=== PATIENT | male | born 1955 | race Caucasian/White ===

== ENCOUNTER 2023-04-25 11:03 | Day surgery (SDC) | payer MEDICARE, OTHER ==
[~2023-04-25] VITALS: Ht 167.6 cm; Wt 55.8 kg
[2023-04-25] VITALS (13 sets, daily range): BP systolic 103–154; BP diastolic 65–95
[~2023-04-25 11:03] MED LIST: METR59TL TOP
--- NOTE | 2023-04-25 12:13 | NUR ---
PRE-OP NOTE PT A&OX4, BREATHING RA, NO COMPLAINTS. Ambulatory in Day Surgery Patient confirms NPO status and agrees with scheduled surgery. Pre-Op teaching done. Pt verbalizes understanding. Patient States Post-Procedure ride home has been arranged.
--- NOTE | 2023-04-25 16:06 | NUR ---
DISCHARGE NOTE PT A&OX4, BREATHING RA, NO COMPLAINTS, TOLERATING PO FLUIDS AND FOOD. PT ABLE TO DRESS INDEPENDENTLY C RN AT BEDSIDE. ICE APPLIED TO SURGICAL SITE. Discharge instructions reviewed with patient. Patient verbalizes understanding. Copy given to patient to take home. Dressing to procedure site clean, dry, intact with no visible drainage, swelling, erythema or bruising noted. Discharged via wheelchair to private car for ride home.
== END 2023-04-25 16:18 | disposition home or self-care (01) ==
LOC: ORSCMMR 11:03 → ORD 12:30 → ORSCMMR 16:18
PROVIDERS: Surgery
PROC: 3E0M45Z Introduction of Adhesion Barrier into Peritoneal Cavity, Percutaneous Endoscopic Approach (ICD-10-PCS; principal; 2023-04-25 12:30)
PROC: 0YU64JZ Supplement Left Inguinal Region with Synthetic Substitute, Percutaneous Endoscopic Approach (ICD-10-PCS; principal; 2023-04-25 12:30)
PROC: 8E0W4CZ Robotic Assisted Procedure of Trunk Region, Percutaneous Endoscopic Approach (ICD-10-PCS; principal; 2023-04-25 12:30)
DX: K40.30 Unilateral inguinal hernia, with obstruction, without gangrene, not specified as recurrent (principal); D17.6 Benign lipomatous neoplasm of spermatic cord; E16.2 Hypoglycemia, unspecified; N40.0 Benign prostatic hyperplasia without lower urinary tract symptoms; Z79.899 Other long term (current) drug therapy
CPT/HCPCS: 49650; S2900; 88304; A9270; C1781; J0690; J1100; J1885; J2250; J2405; J2704; J3010; J7120

== ENCOUNTER → 2023-05-30 | Outpatient (CLI) | payer MEDICARE, OTHER | END | disposition home or self-care (01) | LOC: LAB SHORT 13:20 → LAB 13:20 | DX: N39.0 Urinary tract infection, site not specified (principal) | CPT/HCPCS: 87077; 87086; 87186 ==

== ENCOUNTER 2023-06-10 17:03 | Inpatient (IN) | payer MEDICARE, OTHER ==
[~2023-06-10] VITALS: Ht 167.6 cm; Wt 55.0 kg
[2023-06-10 17:55] LABS: BASOPHILS ABSOLUTE AUTO 0.05 K/mm3 (0.00-0.23); BASOPHILS PERCENT AUTO 1 % (0-2); EOSINOPHILS ABSOLUTE AUTO 0.04 K/mm3 (0.00-0.68); EOSINOPHILS PERCENT AUTO 1 % (0-6); Hematocrit 42.3 % (37.0-53.0); Hemoglobin 14.4 g/dL (13.5-17.5); IMMATURE GRAN ABSOLUTE AUTO 0.03 K/mm3 (0.00-0.10); IMMATURE GRAN PERCENT AUTO 1 % (0-1); LYMPHOCYTES ABSOLUTE AUTO 0.63 K/mm3 (0.84-5.20); LYMPHOCYTES PERCENT AUTO 10 % (21-46); MONOCYTES ABSOLUTE AUTO 0.79 K/mm3 (0.16-1.47); MONOCYTES PERCENT AUTO 13 % (4-13); Mean Corpuscular HGB 31.4 pg (26.0-34.0); Mean Corpuscular Volume 92 fL (80-100); NEUTROPHILS ABSOLUTE AUTO 4.72 K/mm3 (1.96-9.15); NEUTROPHILS PERCENT AUTO 75 % (41-73); Platelet Count 214 K/mm3 (150-400); RDW Coefficient Variation 12.3 % (11.7-14.2); RDW Standard Deviation 41.4 fL (35.1-46.3); Red Blood Cell Count 4.59 M/mm3 (4.30-5.90); White Blood Cell Count 6.26 K/mm3 (4.00-11.30)
[2023-06-10 18:19] LABS: Albumin, Blood 3.6 g/dL (3.4-5.0); Albumin/Globulin Ratio 0.9 (0.8-1.8); Bilirubin, Total 0.8 mg/dL (0.1-1.0); Bun/Creatinine Ratio 15.7 (12.0-20.0); Creatinine, Blood 0.76 mg/dL (0.60-1.20); Globulin, Blood 4.1 g/dL (2.2-4.0); Potassium, Blood 4.4 mmol/L (3.5-5.5); Total Protein, Blood 7.7 g/dL (6.4-8.2)
[2023-06-10 21:21] LABS: Body Fluid Crystals NEG (NEGATIVE)
[2023-06-10 23:01] LABS: Appearance, Synovial Fluid SL Hazy (Clear); Color, Synovial Fluid Yellow (None-P Yel)
[2023-06-10 23:02] LABS: BODY FLUID RBC 0.005 M/mm3 (0-0); RBC Count, Synovial Fluid 5000 /mm3 (0-0); WBC Count, Synovial Fluid 14720 /mm3 (0-180)
[2023-06-10 23:05] LABS: Lymphs, Synovial Fluid 1 % (0-15); Monocytes/Macrophages, Synovia 9 % (0-65); Neutrophils, Synovial Fluid 90 % (0-24)
[2023-06-11 00:05] VITALS: BP 125/76
[2023-06-11 01:48] LABS: Source, Urine Clean Catch
[2023-06-11 02:13] LABS: Bilirubin, Urine Neg (Neg); Blood, Urine Neg (Neg); Glucose Qualitative, Urine Neg (Neg); Ketones, Urine 3+ (Neg); Leukocyte Esterase, Urine Neg (Neg); Nitrite, Urine Neg (Neg); Protein, Urine 1+ (Neg); Specific Gravity, Urine 1.025 (1.003-1.022); Urobilinogen, Urine NORM (Normal)
[2023-06-11 02:21] LABS: Appearance, Urine Clear (Clear); Color, Urine Yellow (P-Yellow)
--- NOTE | 2023-06-11 04:38 | NUR ---
NEW ADMIT NO PAIN NO DISTRESS LEFT KNEE VERY SWOLLEN AND WAS STARTED ON ANTIBIOTICS IN ER. PT A LITTLE TAKEN BACK ABOUT STAYING THE NIGHT AT HOSPITAL BUT WILL ATTEMPT TO SLEEP AND RELAX UNTIL MORNING. ADMIT DONT WITHOUT ANY ISSUES.
[2023-06-11 05:49] LABS: Hematocrit 38.3 % (37.0-53.0); Mean Corpuscular HGB 31.4 pg (26.0-34.0); Mean Corpuscular HGB Conc 33.9 g/dL (31.5-36.5); Mean Corpuscular Volume 93 fL (80-100); Mean Platelet Volume 10.4 fL (9.1-12.4); Platelet Count 207 K/mm3 (150-400); RDW Coefficient Variation 12.2 % (11.7-14.2); RDW Standard Deviation 41.4 fL (35.1-46.3); Red Blood Cell Count 4.14 M/mm3 (4.30-5.90)
[2023-06-11 06:42] LABS: Bun/Creatinine Ratio 18.9 (12.0-20.0); Calcium, Blood 8.7 mg/dL (8.5-10.1); Creatinine, Blood 0.74 mg/dL (0.60-1.20); Potassium, Blood 3.7 mmol/L (3.5-5.5)
[2023-06-11 07:28] VITALS: BP 102/63
[2023-06-11 15:46] VITALS: BP 97/71
--- NOTE | 2023-06-11 18:51 | NUR ---
SUMMARY- PT/A/O X4, INDEPENDANT WITH CANE. TOLERATING FOOD AND FLUIDS.L KNEE SWOLLEN AND WARM AND VERY PAINFUL TO AMBULATE WITH. DR CAMP IN TO EVAL AND OPTED TO WAIT ONE MORE NIGHT TO SEE IF SWELLING RESOLVES. PT TO BE NPO AFTER MIDNIGHT IN CASE THEY PROCEDE WITH SURGERY. DR CAMP STATES SHE WILL BE IN TO EVAL PT IN THE AM 06/12
--- NOTE | 2023-06-11 19:09 | NUR ---
UPDATED PRIMARY RN, REMY OF [facility] [place] THIS AM OF 59 - SEE LAB, WITH NO REPEAT LAB DRAW. SHE WILL REPORT THIS OFF TO ONCOMING SHIFT, WHO IS CURRENTLY STANDING NEXT TO HER.
--- NOTE | 2023-06-11 19:13 | NUR ---
UPDATED ANURAG HERRERA OF LAST SET OF VS, VIEWS SCORE, AND CBG OF 59 THIS AM, WITH NO REPEAT CBG.
[2023-06-11 20:29] VITALS: BP 111/67
--- NOTE | 2023-06-12 05:39 | NUR ---
SHIFT SUMMARY PT IS A&O4, IND IN ROOM WITH RA DANII, NO COMPLAINTS OF PAIN OR DISCOMFORT OVERNIGHT, FIRE SAFETY MITIGATION, EDUCATION PROVIDED, PT HAS BEEN NPO FOR POSSIBLE KNEE DRAIN TODAY, CONTINUE POC
[2023-06-12 07:47] VITALS: BP 96/63
[2023-06-12 08:38] LABS: BASOPHILS ABSOLUTE AUTO 0.03 K/mm3 (0.00-0.23); BASOPHILS PERCENT AUTO 1 % (0-2); EOSINOPHILS ABSOLUTE AUTO 0.12 K/mm3 (0.00-0.68); EOSINOPHILS PERCENT AUTO 4 % (0-6); Hematocrit 35.5 % (37.0-53.0); Hemoglobin 11.8 g/dL (13.5-17.5); IMMATURE GRAN ABSOLUTE AUTO 0.01 K/mm3 (0.00-0.10); IMMATURE GRAN PERCENT AUTO 0 % (0-1); LYMPHOCYTES ABSOLUTE AUTO 0.38 K/mm3 (0.84-5.20); LYMPHOCYTES PERCENT AUTO 14 % (21-46); MONOCYTES ABSOLUTE AUTO 0.39 K/mm3 (0.16-1.47); MONOCYTES PERCENT AUTO 14 % (4-13); Mean Corpuscular HGB 30.9 pg (26.0-34.0); Mean Corpuscular HGB Conc 33.2 g/dL (31.5-36.5); Mean Corpuscular Volume 93 fL (80-100); Mean Platelet Volume 10.2 fL (9.1-12.4); NEUTROPHILS ABSOLUTE AUTO 1.88 K/mm3 (1.96-9.15); NEUTROPHILS PERCENT AUTO 67 % (41-73); Platelet Count 203 K/mm3 (150-400); RDW Standard Deviation 41.4 fL (35.1-46.3); Red Blood Cell Count 3.82 M/mm3 (4.30-5.90); White Blood Cell Count 2.81 K/mm3 (4.00-11.30)
[2023-06-12 09:04] LABS: Bun/Creatinine Ratio 16.9 (12.0-20.0); Calcium, Blood 8.2 mg/dL (8.5-10.1); Creatinine, Blood 0.65 mg/dL (0.60-1.20); Potassium, Blood 4.3 mmol/L (3.5-5.5)
[2023-06-12 09:09] LABS: Vancomycin, Trough 20.1 ug/mL (5.0-10.0)
[2023-06-12 15:59] VITALS: BP 105/68
[2023-06-12] MEDS ORDERED: VOLTAREN ARTHRI20 GM TOP (16:49)
--- NOTE | 2023-06-12 17:32 | NUR ---
SHIFT SUMMARY NO ACUTE CHANGES NOTED DURING SHIFT. PT ALERT AND ORIENTED, CALLS APPROPRIATELY. PT INDEPENDENT IN ROOM WITH CANE. SWELLING TO KNEE IMPROVED, NO NEED FOR SURGICAL PROCEDURE. NO C/O PAIN NOTED, WILL CONTINUE TO MONITOR. CALL LIGHT WITHIN REACH.
--- NOTE | 2023-06-12 17:57 | NUR ---
DISCHARGE SUMMARY DISCHARGE, FOLLOWUP, AND MEDICATION INSTRUCTIONS GIVEN TO PT. PT VOICED COMPLETE UNDERSTANDING AND HAS NO QUESTIONS AT THIS TIME. IV REMOVED WITH CATHETER TIP INTACT. PT WHEELED OFF UNIT.
== END 2023-06-12 18:08 | disposition home or self-care (01) | DRG 566 ==
LOC: ER 17:03 → MEDS 23:48 → ER 23:48 → MEDS 23:54
PROVIDERS: Emergency Medicine; Family Medicine; Student in an Organized Health Care Education/Training Program; ADMIT Internal Medicine
PROC: 0S9D3ZZ Drainage of Left Knee Joint, Percutaneous Approach (ICD-10-PCS; principal; 2023-06-11)
DX: M25.462 Effusion, left knee (principal); M25.762 Osteophyte, left knee; F10.90 Alcohol use, unspecified, uncomplicated; F17.290 Nicotine dependence, other tobacco product, uncomplicated; M17.12 Unilateral primary osteoarthritis, left knee; Z79.899 Other long term (current) drug therapy; Z87.440 Personal history of urinary (tract) infections; Z98.890 Other specified postprocedural states
CPT/HCPCS: 20610; 36415; 73562-LT; 80048; 80053; 80202; 85025; 85027; 85651; 86140; 87070; 87075; 87205; 89051; 89060; 96365-59; 96375-59; 99284-25; A9270; J0171; J0696; J3370; J7030

== ENCOUNTER → 2023-06-17 | Outpatient (CLI) | payer MEDICARE, OTHER ==
[~2023-06-17] MED LIST changes: +VOLTAREN ARTHRI20 GM TOP
[2023-06-19 20:11] LABS: ANA DIRECT Negative (Negative); ANTI-DNA (DS) AB QN 1 IU/mL (0-9); RNP ANTIBODIES <0.2 AI (0.0-0.9); SJOGREN'S ANTI-SS-A <0.2 AI (0.0-0.9); SJOGREN'S ANTI-SS-B <0.2 AI (0.0-0.9); SMITH ANTIBODIES <0.2 AI (0.0-0.9)
== END ==
LOC: LAB SHORT 15:45 → LAB 15:45
PROVIDERS: Family Medicine
DX: E55.9 Vitamin D deficiency, unspecified (principal); M25.462 Effusion, left knee; D53.1 Other megaloblastic anemias, not elsewhere classified
CPT/HCPCS: 82306; 82607; 82746; 86225; 86235

== ENCOUNTER → 2023-06-19 | Outpatient (CLI) | payer MEDICARE, OTHER | LOC: LAB SHORT 11:49 → LAB 11:49 | DX: K50.90 Crohn's disease, unspecified, without complications (principal) | CPT/HCPCS: 83993 ==

== ENCOUNTER → 2023-11-14 | Outpatient (CLI) | payer MEDICARE, OTHER ==
[2023-11-14 15:41] LABS: Hematocrit 41.2 % (37.0-53.0); Mean Corpuscular HGB 31.5 pg (26.0-34.0); Mean Corpuscular Volume 93 fL (80-100); Mean Platelet Volume 10.7 fL (9.1-12.4); Platelet Count 200 K/mm3 (150-400); RDW Coefficient Variation 12.7 % (11.7-14.2); RDW Standard Deviation 43.3 fL (35.1-46.3); Red Blood Cell Count 4.45 M/mm3 (4.30-5.90); White Blood Cell Count 3.48 K/mm3 (4.00-11.30)
[2023-11-14 16:38] LABS: BASOPHILS ABSOLUTE MAN 0.03 K/mm3 (0.00-0.23); BASOPHILS PERCENT MAN 1 % (0-2); EOSINOPHILS ABSOLUTE MAN 0.13 K/mm3 (0.00-0.68); EOSINOPHILS PERCENT MAN 4 % (0-6); LYMPHOCYTES ABSOLUTE MAN 0.52 K/mm3 (0.84-5.20); LYMPHOCYTES PERCENT MAN 15 % (21-46); MONOCYTES ABSOLUTE MAN 0.38 K/mm3 (0.16-1.47); MONOCYTES PERCENT MAN 11 % (4-13); SEG NEUTROPHILS PERCENT MAN 69 % (41-73); TOTAL CELLS COUNTED 100
== END ==
LOC: LAB SHORT 10:40 → LAB 10:40
PROVIDERS: Family Medicine
DX: D72.810 Lymphocytopenia (principal)
CPT/HCPCS: 85007; 85027

== ENCOUNTER 2024-03-17 07:24 | Day surgery (SDC) | payer MEDICARE, OTHER ==
[2024-03-17] VITALS (16 sets, daily range): BP systolic 114–175; BP diastolic 59–99
[~2024-03-17] VITALS: Ht 165 cm; Wt 59.4 kg
[~2024-03-17 07:24] MED LIST changes: +GLUCHON PO; +Lactated Ringer's 1,000 ML IV SCH; +MULVITA PO
[2024-03-17] MEDS ORDERED: MAGNESIUM OXID500 MG PO (07:57)
[2024-03-17] MEDS ORDERED: TURMERIC500 M2 PO (07:57)
[2024-03-17] MEDS ORDERED: Milk Thistle175 M1 PO (07:57)
[2024-03-17] MEDS ORDERED: FLAX PO (07:58)
--- NOTE | 2024-03-17 08:11 | NUR ---
History, Chart, Medications and Allergies reviewed before start of procedure. Patient up to Ambulate independently. Gait steady. Pre-Op teaching done. Pt verbalizes understanding. Patient confirms NPO status and agrees with scheduled surgery. Patient states colon prep results clear. Lungs clear T/O to Auscultation. Patient States Post-Procedure ride home has been arranged.
[2024-03-17] MEDS ORDERED: propofoL 20 ML IV ONE (08:32)
[2024-03-17] MEDS ORDERED: Midazolam HCl 1MG / ML 2ML Vial ONE (08:48)
--- NOTE | 2024-03-17 09:05 | NUR ---
PT TO DAY SURGERY STEP DOWN FROM COLONOSCOPY. BEDSIDE REPORT RECEIVED. PT IS AWAKE, ALERT AND ORIENTED; ABLE TO MOVE SELF IN BED. VSS. PT HAS NO COMPLAINTS AT THIS TIME.
--- NOTE | 2024-03-17 09:16 | NUR ---
TOLERATING PO FLUIDS WELL. Discharge instructions reviewed with patient. Patient verbalizes understanding. Copy given to patient to take home. Patient States Post-Procedure ride home has been arranged.
--- NOTE | 2024-03-17 09:38 | NUR ---
Patient up to Ambulate independently. Gait steady. Discharged via wheelchair to private car for ride home.
--- NOTE | 2024-03-17 13:25 | NUR ---
03/17/24 [id number] Rachid Rayo HISTORY, CHART, MEDICATIONS AND ALLERGIES REVIEWED BEFORE START OF PROCEDURE. PATIENT CONFIRMS NPO STATUS AND AGREES WITH SCHEDULED PROCEDURE. 3-LEAD EKG REVIEWED WITH PHYSICIAN PRIOR TO START OF PROCEDURE. MONITOR INTACT WITH CONTINUOUS PULSE OXIMETRY,CAPNOGRAPHY, 3-LEAD EKG, INTERMITTENT BP. SUPPLEMENTAL O2 TO BE TITRATED THROUGHOUT PROCEDURE TO MAINTAIN O2 SATURATION ABOVE 90%. PATIENT DETERMINED TO BE ASA APPROPRIATE FOR PROPOFOL SEDATION PRIOR TO START OF PROCEDURE BY DR. BRINK.
== END 2024-03-17 09:39 | disposition home or self-care (01) ==
LOC: ORSCMMR 07:24 → ORD 08:30 → ORSCMMR 08:30
PROVIDERS: Internal Medicine Gastroenterology
PROC: 0DBN8ZX Excision of Sigmoid Colon, Via Natural or Artificial Opening Endoscopic, Diagnostic (ICD-10-PCS; principal; 2024-03-17 08:30)
PROC: 0DBP8ZX Excision of Rectum, Via Natural or Artificial Opening Endoscopic, Diagnostic (ICD-10-PCS; principal; 2024-03-17 08:30)
PROC: 0DBM8ZX Excision of Descending Colon, Via Natural or Artificial Opening Endoscopic, Diagnostic (ICD-10-PCS; principal; 2024-03-17 08:30)
PROC: 0DBK8ZX Excision of Ascending Colon, Via Natural or Artificial Opening Endoscopic, Diagnostic (ICD-10-PCS; principal; 2024-03-17 08:30)
DX: K62.89 Other specified diseases of anus and rectum (principal); K62.4 Stenosis of anus and rectum; Z87.11 Personal history of peptic ulcer disease; Z79.899 Other long term (current) drug therapy
CPT/HCPCS: 82947; 88305; J2250; J2704; J7120

== ENCOUNTER → 2025-02-22 | Outpatient (CLI) | payer MEDICARE ==
[~2025-02-22] MED LIST changes: +FLAX PO; -Lactated Ringer's 1,000 ML IV SCH; +MAGNESIUM OXID500 MG PO; +Milk Thistle175 M1 PO; +TURMERIC500 M2 PO
[2025-02-22 15:45] LABS: PSA, %Free 17.5 %
== END ==
LOC: LAB SHORT 14:14 → LAB 14:14
PROVIDERS: Student in an Organized Health Care Education/Training Program
DX: R97.20 Elevated prostate specific antigen [PSA] (principal)
CPT/HCPCS: 84153; 84154